=== PATIENT | female | born 1965 | race Caucasian/White ===

== ENCOUNTER → 2019-05-31 | Outpatient (CLI) | payer OTHER ==
[2019-05-31 15:02] LABS: Basophils % (A) 1 %; Eosinophils # (A) 0.3 k/uL (0-0.7); Eosinophils % (A) 4 %; Lymphocytes # (A) 2.5 k/uL (1.0-4.8); Lymphocytes % (A) 29 %; MCH 30.6 pg (25.0-35.0); MCHC 33.3 g/dL (31.0-37.0); MCV 91.9 fL (80.0-100.0); Mean Platelet Volume 6.8; Monocytes # (A) 0.4 k/uL (0-1.0); Monocytes % (A) 5 %; Neutrophils # (A) 5.2 k/uL (1.3-7.7); Neutrophils % (A) 61 %; Platelet Count 371 k/uL (150-450); RBC 4.57 m/uL (3.80-5.40); WBC 8.6 k/uL (3.8-10.6)
[2019-05-31 16:33] LABS: Erythrocyte Sedimentation Rate 6 mm/hr (0-20)
[2019-05-31 19:15] LABS: C Reactive Protein <0.4 mg/dL (0.0-0.8); Rheumatoid Factor 5 IU/mL (0-15); Uric Acid 3.7 mg/dL (2.9-7.7)
[2019-06-01 07:10] LABS: HLA B27 NEGATIVE
== END | disposition home or self-care (01) ==
LOC: LABWHC1 14:11
PROVIDERS: ATTEND Orthopaedic Surgery
DX: M25.50 Pain in unspecified joint (principal)
CPT/HCPCS: 36415; 84550; 85025; 85652; 86038; 86140; 86431; 86812